=== PATIENT | female | born 1955 | race Caucasian/White ===

== ENCOUNTER → 2016-09-01 | Outpatient (CLI) | payer OTHER | LOC: FIMAGING 13:26 | PROVIDERS: ATTEND Nurse Practitioner | DX: Z12.31 Encounter for screening mammogram for malignant neoplasm of breast (principal); Z80.3 Family history of malignant neoplasm of breast | CPT/HCPCS: G0202 ==

== ENCOUNTER → 2017-10-20 | Outpatient (CLI) | payer OTHER | LOC: FIMAGING 10:53 | PROVIDERS: ATTEND Nurse Practitioner | DX: Z13.820 Encounter for screening for osteoporosis (principal); M85.89 Other specified disorders of bone density and structure, multiple sites ==

== ENCOUNTER 2017-12-20 18:41 | Emergency (ER) | payer OTHER ==
[2017-12-20] MEDS ORDERED: NS 1,000 ML IV ONE (18:51)
[2017-12-20] MEDS ORDERED: ONDANSETRON 4MG PREPACK#2 BTL TAKEHOME ONE (18:53)
--- NOTE | 2017-12-20 18:53 | EDPHY ---
H & P Stated Complaint: Oral bone graft yest, on thinner, uncontrolled bleeding Time Seen by Provider: 12/20/17 18:45 HPI/ROS: CHIEF COMPLAINT: Bleeding after oral surgery HISTORY OF PRESENT ILLNESS: The patient is a 62-year-old female who takes Xarelto for history of atrial fibrillation. She had a bone graft to her upper left mouth yesterday in preparation for dental implants. She was kept on the Xarelto. She has had intermittent oozing ever since. She saw her dentist again yesterday evening and told her that the wound and stitches looked good. She felt nauseous today and She threw up clots of blood. No fevers. No shortness of breath. Her bleeding has now stopped. Severity: Moderate Modifying factors: None REVIEW OF SYSTEMS: Constitutional: denies: chills, fever, recent illness, recent injury EENTM: denies: blurred vision, double vision, nose congestion Respiratory: denies: cough, shortness of breath Cardiac: denies: chest pain, irregular heart rate, lightheadedness, palpitations Gastrointestinal/Abdominal: denies: abdominal pain, diarrhea, nausea, vomiting, blood streaked stools Genitourinary: denies: dysuria, frequency, hematuria, pain Musculoskeletal: denies: joint pain, muscle pain Skin: denies: lesions, rash, jaundice, bruising Neurological: denies: headache, numbness, paresthesia, tingling, dizziness, weakness Hematologic/Lymphatic: denies: blood clots, easy bleeding, easy bruising Immunologic/allergic: denies: HIV/AIDS, transplant 10 systems reviewed and negative except as noted EXAM: GENERAL: Well-appearing, well-nourished and in no acute distress. HEAD: Atraumatic, normocephalic. EYES: Pupils equal round and reactive to light, extraocular movements intact, sclera anicteric, conjunctiva are normal. ENT: TMs normal, nares patent, scab in place with sutures in left upper jaw, no bleeding currently. Moist mucous membranes. NECK: Normal range of motion, supple without lymphadenopathy or JVD. LUNGS: Breath sounds clear to auscultation bilaterally and equal. No wheezes rales or rhonchi. HEART: Regular rate and rhythm without murmurs, rubs or gallops. ABDOMEN: Soft, nontender, normoactive bowel sounds. No guarding, no rebound. No masses appreciated. BACK: No CVA tenderness, no spinal tenderness, step-offs or deformities EXTREMITIES: Normal range of motion, no pitting or edema. No clubbing or cyanosis. NEUROLOGICAL: Cranial nerves II through XII grossly intact. Normal speech, normal gait. 5/5 strength, normal movement in all extremities, normal sensation , normal reflexes PSYCH: Normal mood, normal affect. SKIN: Warm, dry, normal turgor, no visible rashes or lesions. Source: Patient Exam Limitations: No limitations - Personal History Current Tetanus/Diphtheria Vaccine: Unsure - Medical/Surgical History Hx Asthma: No Hx Chronic Respiratory Disease: No Hx Diabetes: No Hx Cardiac Disease: No Hx Renal Disease: No Hx Cirrhosis: No Hx Alcoholism: No Hx HIV/AIDS: No Hx Splenectomy or Spleen Trauma: No Other PMH: HASHIMOTOS, "IMMUNOCOMPROMISED"; sleep apnea; endometriosisi; fibromyalgia; ovairian ca; hysterectomy; left oophrecectomy; T&A - Family History Significant Family History: No pertinent family hx - Social History Smoking Status: Never smoked Alcohol Use: Sober Drug Use: None Constitutional: Initial Vital Signs Temperature (C) 37.2 C 12/20/17 18:47 Heart Rate 97 12/20/17 18:47 Respiratory Rate 18 12/20/17 18:47 Blood Pressure 115/77 12/20/17 18:47 O2 Sat (%) 99 12/20/17 18:47 O2 Delivery Mode Room Air Allergies/Adverse Reactions: No Known Allergies Allergy (Verified 12/20/17 18:47) Home Medications: Medication Instructions Recorded Artemether/Lumefantrine [COARTEM 2 each PO AD 05/30/15 TABLETS] Cetirizine [ZyrTEC 10 mg (*)] 10 mg PO AD 05/30/15 Cholestyramine/Sucrose [Questran] 4 gm PO DAILY 05/30/15 Clindamycin HCl [Clindamycin] 600 mg PO AD 05/30/15 Herbals/Supplements -Info Only 1 ea PO AD 05/30/15 Ivig 1 ea IV Q21D 05/30/15 Liothyronine Sodium [Cytomel 5 mcg 5 mcg PO BID@06,12 05/30/15 (*)] Minocycline HCl [Minocin] 100 mg PO BIDMEAL 05/30/15 Nystatin [Mycostatin] 1,000,000 unit PO BID 05/30/15 Ranitidine HCl [Zantac] 150 mg PO AD 05/30/15 Apixaban [Eliquis] 5 mg PO BID #60 tab 05/31/15 Diltiazem Cd [Cardizem ER 120 MG 120 mg PO DAILY #30 cap 05/31/15 (*)] Levothyroxine [Synthroid 50 mcg 50 mcg PO DAILY06 #0 tab 05/31/15 (*)] Medical Decision Making ED Course/Re-evaluation: The patient is not currently bleeding she feels better after vomiting. She was given Zofran by EMS and feels better. We will continue to hydrate her and I have suggested she stop her Xarelto for 2-3 days. The risk of stroke is low over the course of a year and even last over a couple of days. She will do this and then restart on her own. She does not need cauterization or sutures or further treatment at this time. She would like a take-home pack of Zofran. Differential Diagnosis: Partial list of the Differential diagnosis considered include but were not limited to; postoperative bleeding, bleeding on Xarelto, vomiting, dehydration and although unlikely based on the history and physical exam, I also considered anemia, hemorrhage, aspiration. I discussed these differential diagnoses and the plan with the patient as well as the usual and expected course. The patient understands that the diagnosis is provisional and that in medicine we are not always correct and that further workup is often warranted. Usual and customary warnings were given. All of the patient's] questions were answered. The [patient was] instructed to return to the emergency department should the symptoms at all worsen or return, otherwise to followup with the physician as we discussed. - Data Points Medications Given: Discontinued Medications Sodium Chloride (Ns) 1,000 mls @ 0 mls/hr IV EDNOW ONE; Wide Open PRN Reason: Protocol Stop: 12/20/17 18:52 Last Admin: 12/20/17 19:14 Dose: 1,000 mls Ondansetron HCl (Zofran Odt 4 Mg Prepack#2) 1 btl TAKEHOME EDNOW ONE Stop: 12/20/17 18:54 Last Admin: 12/20/17 19:55 Dose: 1 btl Departure - Departure Disposition: Home, Routine, Self-Care Clinical Impression: Bleeding from mouth Condition: Fair Instructions: Ondansetron (By mouth), Postoperative Bleeding (ED) Additional Instructions: Hold your Xarelto for the next 3-4 days and then resume. Referrals: Patient,NotPresent [Unknown] - 1-2 days without fail
[2017-12-20 19:06] VITALS: BP 120/82
== END 2017-12-20 20:10 | disposition home or self-care (01) ==
LOC: EDUNIT#
DX: K91.840 Postprocedural hemorrhage of a digestive system organ or structure following a digestive system procedure (principal); Z79.01 Long term (current) use of anticoagulants